=== PATIENT | female | born 1970 | race Two or more races ===

== ENCOUNTER 2022-05-21 23:29 | Emergency (ER) | payer MEDICAID, OTHER ==
[~2022-05-21] VITALS: Ht 162.6 cm; Wt 73.1 kg
--- NOTE | 2022-05-22 00:04 | NUR ---
Dr. Segura at bedside for MSE.
[2022-05-22] MEDS ORDERED: IV NORMAL SALINE 1000 ML BAG IV ONE (00:15)
--- NOTE | 2022-05-22 00:15 | NUR ---
Pt provided urine sample, sent to lab.
[2022-05-22 00:30] LABS: HEMATOCRIT 34.5 % (31.2-41.9); MEAN CORPUSCULAR HEMOGLOBIN 32.8 uug (24.7-32.8); MEAN CORPUSCULAR VOLUME 94.9 fL (75.5-95.3); PLATELET COUNT (AUTO) 330 K/uL (179-408)
[2022-05-22 00:38] LABS: CREATININE 0.8 mg/dL (0.6-1.3); POTASSIUM 3.4 mmol/L (3.5-5.1)
[2022-05-22 00:49] LABS: BILIRUBIN,DIRECT 0.2 mg/dL (0.0-0.2); BILIRUBIN,TOTAL 0.6 mg/dL (0.2-1.0); TOTAL PROTEIN, SERUM 9.1 g/dL (6.4-8.2)
[2022-05-22] MEDS ORDERED: METOCLOPRAMIDE HCL 10 MG/2 ML VIAL ONE (00:50)
[2022-05-22] MEDS ORDERED: diphenhydrAMINE 50 MG/1 ML VIAL ONE (00:50)
[2022-05-22] MEDS ORDERED: KETOROLAC TROMETHAMINE 30 MG INJ ONE (00:50)
[2022-05-22] MEDS ORDERED: KETOROLAC TROMETHAMINE 30 MG INJ IVP ONE (01:00)
[2022-05-22] MEDS ORDERED: METOCLOPRAMIDE HCL 10 MG/2 ML VIAL IV ONE (01:00)
[2022-05-22] MEDS ORDERED: diphenhydrAMINE 50 MG/1 ML VIAL IV ONE (01:00)
[2022-05-22 01:32] LABS: *BILIRUBIN,URIN NEGATIVE (NEGATIVE); *BLOOD, URINE 2+ (NEGATIVE); *COLOR,URINE YELLOW (YELLOW); *KETONES,URINE NEGATIVE (NEGATIVE); *UROBILINOGEN,URINE 0.2 E.U./dl (NORMAL); LEUKOCYTE ESTERASE ,URINE 2+ (NEGATIVE); NITRITE, URINE NEGATIVE (NEGATIVE); PH,URINE 6.5 (5.0-8.0); UGLUCOSE NEGATIVE (NEGATIVE)
[2022-05-22 01:38] LABS: *CLARITY,URINE HAZY (CLEAR)
[2022-05-22 01:40] LABS: BACTERIA,URINE MODERATE /HPF (NONE SEEN); SQUAMOUS EPITHELIAL CELL,UR FEW /HPF (NONE SEEN); WBC,URINE 80-100 /HPF (0-3)
[2022-05-22] MEDS ORDERED: POTASSIUM CHLORIDE 20 MEQ TAB.PRT.SR PO ONE (02:15)
[2022-05-22] MEDS ORDERED: NITROFURANTOIN/NITROFURAN MAC 100 MG CAPSULE PO ONE ×2 (02:15→02:19)
--- NOTE | 2022-05-22 02:15 | NUR ---
Pt provided with 250 cc water for PO challenge.
[2022-05-22] MEDS ORDERED: POTASSIUM CHLORIDE 20 MEQ TAB.PRT.SR ONE (02:19)
[2022-05-22] MEDS ORDERED: ONDA4TAB11 PO (02:24)
[2022-05-22] MEDS ORDERED: IBUP-1955 PO (02:24)
[2022-05-22] MEDS ORDERED: NITR100C11 PO (02:24)
--- NOTE | 2022-05-22 02:32 | NUR ---
Pt passed PO challenge. Patient discharged to home in stable condition. Written and verbal after care instructions given. Patient verbalizes understanding of instructions. Stressed follow up or return to ER for worsening s/s. Pt out of ER with steady gait, no acute signs of distress, VSS, all belongings taken, IV site discontinued, provided with copies of lab results.
[2022-05-22 02:33] VITALS: BP 118/80
[2022-05-23] MEDS ORDERED: ONDA4TAB5 PO (02:12)
[2022-05-23] MEDS ORDERED: HYDR-3980 PO (02:12)
[2022-05-23] MEDS ORDERED: PROC5TAB56 PO (10:36)
== END 2022-05-22 02:34 | disposition home or self-care (01) ==
LOC: ER 05-22 00:30
DX: R51.9 Headache, unspecified (principal); R11.2 Nausea with vomiting, unspecified; N39.0 Urinary tract infection, site not specified; E87.6 Hypokalemia
CPT/HCPCS: 36415; 80048; 80076; 81001; 83690; 84702; 85025; 87077; 87086; 87186; 96374; 96375; 99284; J1200; J1885; J2765; J7040

== ENCOUNTER 2022-05-23 00:57 | Emergency (ER) | payer OTHER ==
[~2022-05-23] VITALS: Ht 160 cm; Wt 72.1 kg
[~2022-05-23 00:57] MED LIST: IBUP-1955 PO; NITR100C11 PO; ONDA4TAB11 PO
--- NOTE | 2022-05-23 01:23 | NUR ---
pt in room 5a c/o headache. Dr. Santamaria at bedside for MSE
[2022-05-23] MEDS ORDERED: ONDANSETRON ODT 4 MG TAB.RAPDIS ONE (01:26)
[2022-05-23] MEDS ORDERED: HYDROMORPHONE 1 MG/1 ML DISP.SYRIN ONE (01:27)
[2022-05-23] MEDS ORDERED: ONDANSETRON ODT 4 MG TAB.RAPDIS SL ONE (01:30)
[2022-05-23] MEDS ORDERED: HYDROMORPHONE 1 MG/1 ML DISP.SYRIN IM ONE (01:30)
[2022-05-23] MEDS ORDERED: ONDA4TAB5 PO (02:12)
[2022-05-23] MEDS ORDERED: HYDR-3980 PO (02:12)
--- NOTE | 2022-05-23 02:24 | NUR ---
Patient discharged to home in stable condition. Written and verbal after care instructions given. Patient verbalizes understanding of instructions. Stressed follow up or return to ER for worsening s/s. Patient out of ER with steady gait, no acute signs of distress, VSS, all belongings taken, instructed not to drive, to be driven home by via private vehicle.
[2022-05-23 02:25] VITALS: BP 128/84
[2022-05-23] MEDS ORDERED: PROC5TAB56 PO (10:36)
== END 2022-05-23 02:25 | disposition home or self-care (01) ==
LOC: ER 00:59
DX: G43.909 Migraine, unspecified, not intractable, without status migrainosus (principal)
CPT/HCPCS: 96372; 99283; J1170; A4663; Q0162